=== PATIENT | male | born 1955 | race Caucasian/White ===

== ENCOUNTER 2019-11-01 12:25 | Day surgery (SDC) | payer MEDICARE ==
[~2019-11-01] VITALS: Ht 180.3 cm; Wt 142.9 kg
[~2019-11-01 12:25] MED LIST: 8 HOUR PAIN RE650 MG PO; AZO BLADDER CO300 MG PO; CARVEDILOL12.5 MG PO; FEBUXOSTAT80 MG PO; FLAXSEED OIL1000 M1 PO; FLOMAX0.4 MG PO; FUROSEMIDE40 MG PO; GABAPENTIN600 MG PO; INSULIN LI100 UNIT/1 SUB-Q; ISOSORBIDE MONO30 MG PO; LEVOTHYROXINE75 MCG PO; LISINOPRIL40 MG PO; METFORMIN HCL500 M2 PO; PANTOPRAZOLE SO40 MG PO; POTASSIUM99 M1 PO; TRAVOPROST2.5 ML OP; TRAZODONE HCL50 MG PO; VITAMIN B COMP1 EAC1 PO; VITAMIN C500 M1 PO; XARELTO20 MG PO
--- NOTE | 2019-11-01 15:54 | NUR ---
11/01/19 1554 Steffi Gtz 1550 PATIENT ARRIVES TO PACU AWAKE BUT DROWSY. ABLE TO HOLD CONVERSATION WITH STAFF APPROPRIATELY. RESP EVEN AND UNLABORED,ROOM AIR SATS >93%.
--- NOTE | 2019-11-05 08:25 | OR ---
[facility] [address], [place] [address] Signed DATE OF OPERATION: 11/01/2019 SURGEON: Teresa Palmer MD PREOPERATIVE DIAGNOSES: 1. Gastroesophageal reflux and distal dysphagia occasionally. 2. Upper GI demonstrating "75% narrowing distal esophagus.". POSTOPERATIVE DIAGNOSES: 1. No evidence of distal esophageal stricture. 2. Complex hiatal hernia and angulation deformity of esophagus. PROCEDURE: Esophagogastroduodenoscopy with biopsy. ANESTHESIA: Intravenous sedation, fentanyl rather propofol infusion; Linda Clemente CRNA. INDICATION: This 64-year-old morbidly obese white man, 315 pounds, is a patient of Dr. Louann Canales. He has had complaints of gastroesophageal reflux. It is improved by Protonix. He also has some distal dysphagia. He underwent an upper GI in [facility] and referred by Dr. Muniz on July 25, 2019, showing moderate hiatal hernia, massive reflux 75% narrowed in the distal esophagus without a malignant appearance. This was a short-segment. He has other medical comorbidities including history of coronary artery bypass grafting, diabetes, and a litany of other problems, all related to morbid obesity. He is admitted at this time to undergo upper endoscopy and possible dilation. He understands the risks of bleeding, infection, and perforation. FINDINGS: Esophagus had no stricture. There was definitely a hiatal hernia and complex in appearance overall. Stomach and duodenum were essentially normal. CLOtest was -15 minutes post procedure. As there was no specific stricture, dilation was not undertaken. Biopsies were obtained of the distal esophagus and mid esophagus to assess for eosinophilic esophagitis. DESCRIPTION OF PROCEDURE: The patient was brought to the endoscopy suite and placed in lateral decubitus position given intravenous sedation with propofol infusional technique by the airport electrician. Full cardiopulmonary monitoring was maintained. A bite block was placed. An Olympus video Electronically Signed By: TERESA PALMER MD 11/05/19 0825 PATIENT NAME: SILVANA ENGLISH OPERATIVE REPORT DATE OF : 51 REPORT #: [id number] PHYSICIAN: TERESA PALMER MD PCP: LOUANN CANALES MD REPORT IS CONFIDENTIAL AND NOT TO BE RELEASED WITHOUT AUTHORIZATION [facility] [address], [place] [address] Signed upper endoscope was passed into the hypopharynx. The vocal cords appeared reasonably normal. Scope was advanced to the esophagus. Throughout its length, it showed no sign of stricture but did show angulation deformity in the distal portion. There was no sign of Ansari's epithelium or varices. The scope was advanced to the stomach, which was insufflated with air. There was no sign of ulceration or other abnormality. Rugal folds were normal. Pylorus was normal scope was passed through into the duodenum, which was normal. Biopsies were taken the duodenum to assess for celiac disease. The scope was withdrawn and biopsies then taken of the antrum for both EDWIN and pathologic testing. Retroflexed view showed a rather large hiatal hernia and complex anatomy but not likely a paraesophageal hernia proper. The scope was withdrawn to the distal esophagus were completely normal. Mucosa was noted. Biopsies were obtained. The scope was withdrawn and angulation deformity in the distal third of the esophagus was noted. Biopsies were taken in the midesophagus to assess for eosinophilic esophagitis. The scope was withdrawn. The vocal cords were once again examined, and the scope was then removed. The patient was taken to the recovery room in good condition. CONCLUDING DIAGNOSES: There is no sign of distal esophageal stricture and therefore dilation not undertaken. Angulation of the esophagus may be related to his hiatal hernia and is unlikely a problem that is remediable by any means at this point. The most important approach for his management is weight loss. We have discussed it before. PLAN: He will continue his Protonix. He will return to the ongoing care of Dr. Canales. I am happy to see him again in 6-8 weeks to review his pathology reports more fully. MD MARGA Sanders/RASTAL /[id number] cc: Louann Canales MD Electronically Signed By: TERESA PALMER MD 11/05/19 0825 PATIENT NAME: SILVANA ENGLISH OPERATIVE REPORT DATE OF : 51 REPORT #: [id number] PHYSICIAN: TERESA PALMER MD PCP: LOUANN CANALES MD REPORT IS CONFIDENTIAL AND NOT TO BE RELEASED WITHOUT AUTHORIZATION [facility] [address] [place] [id number] Signed Copies: LOUANN CANALES MD ~ Electronically Signed By: TERESA PALMER MD 11/05/19 0825 PATIENT NAME: SILVANA ENGLISH OPERATIVE REPORT DATE OF : 51 REPORT #: [id number] PHYSICIAN: TERESA PALMER MD PCP: LOUANN CANALES MD REPORT IS CONFIDENTIAL AND NOT TO BE RELEASED WITHOUT AUTHORIZATION
--- NOTE | 2019-11-05 16:36 | PATH ---
[facility] [address] [place], [place] [address] Signed SPECIMEN(S): A DUODENUM SPECIMEN(S): B ANTRUM/PYLORUS SPECIMEN(S): C LOWER ESOPHAGUS SPECIMEN(S): D MIDDLE ESOPHAGUS SPECIMEN SOURCE: A. DUODENUM B. ANTRUM/PYLORUS C. LOWER ESOPHAGUS D. MIDDLE ESOPHAGUS CLINICAL HISTORY: Dysphagia, reflux. MICROSCOPIC DESCRIPTION: Histologic sections of all submitted blocks are examined by light microscopy. These findings, together with the gross examination, support the pathologic diagnosis. FINAL PATHOLOGIC DIAGNOSIS: A. Duodenum, biopsy: - Benign duodenal mucosa, negative for specific diagnostic abnormality. B. Antrum/pylorus, biopsy: - Gastric type mucosa with focal slight chronic inflammation. - Negative for evidence of Helicobacter organisms on routine HE stained sections. C. Lower esophagus, biopsy: - Squamocolumnar junction with reactive epithelia features and slight chronic inflammation. - Negative for specialized intestinal metaplasia or dysplasia. D. Middle esophagus, biopsy: - Benign esophageal mucosa, negative for increased epithelial eosinophils. JVR:cml:[id number] GROSS DESCRIPTION: Four specimens are received in four containers, labeled "DW." A. The specimen, labeled "DW," and designated on the requisition "duodenum biopsy," is received in formalin and consists of one fragment of pink-lopez tissue (0.4 x 0.4 x 0.3 cm). The specimen is submitted entirely in cassette (A1). B. The specimen, labeled "DW," and designated on the requisition "antrum/pylorus biopsy," is received in formalin and consists of two fragments PATIENT NAME: SILVANA ENGLISH PATHOLOGY DATE OF : 51 REPORT #: [id number] PHYSICIAN: [facility] PATHOLOGY PCP: LOUANN SON MD REPORT IS CONFIDENTIAL AND NOT TO BE RELEASED WITHOUT AUTHORIZATION [facility] [address] [place], [place] [address] Signed of pink-lopez tissue (0.4 x 0.2 x 0.2 cm in aggregate). The specimen is submitted entirely in cassette (B1). C. The specimen, labeled "DW," and designated on the requisition "lower esophagus biopsy," is received in formalin and consists of multiple fragments of white-lopez tissue (0.5 x 0.4 x 0.2 cm in aggregate). The specimen is submitted entirely in cassette (C1). D. The specimen, labeled "DW," and designated on the requisition "middle esophagus biopsy," is received in formalin and consists of multiple fragments of lopez tissue (0.5 x 0.3 x 0.2 cm in aggregate). The specimen is submitted entirely in cassette (D1). AC (under the direct supervision of a pathologist) The Gross Description was prepared using a voice recognition system. The report was reviewed for accuracy; however, sound-alike word errors, addition and/or deletions may occur. If there is any question about this report, please contact Client Services. PERFORMING LABORATORY: The technical component was performed by [facility], [address] [place] [id number] (Shelver: Sushma Hale MD; CLIA# [id number]). Professional interpretation was performed by [facility] [address] (Shelver: Samuel Godinez M.D.). Diagnostician: Samuel Godinez MD Pathologist Electronically Signed 11/05/2019 Copies: ~ PATIENT NAME: SILVANA ENGLISH PATHOLOGY DATE OF : 51 REPORT #: [id number] PHYSICIAN: [facility] PATHOLOGY PCP: LOUANN SON MD REPORT IS CONFIDENTIAL AND NOT TO BE RELEASED WITHOUT AUTHORIZATION
== END 2019-11-01 16:15 | disposition home or self-care (01) ==
LOC: OPS 12:25 → DS 12:25 → OPS 13:00
PROVIDERS: Surgery
PROC: 0DB78ZX Excision of Stomach, Pylorus, Via Natural or Artificial Opening Endoscopic, Diagnostic (ICD-10-PCS; 2019-11-01)
PROC: 0DB28ZX Excision of Middle Esophagus, Via Natural or Artificial Opening Endoscopic, Diagnostic (ICD-10-PCS; 2019-11-01)
PROC: 0DB38ZX Excision of Lower Esophagus, Via Natural or Artificial Opening Endoscopic, Diagnostic (ICD-10-PCS; 2019-11-01)
PROC: 0DB98ZX Excision of Duodenum, Via Natural or Artificial Opening Endoscopic, Diagnostic (ICD-10-PCS; principal; 2019-11-01 13:30)
DX: K29.50 Unspecified chronic gastritis without bleeding (principal); K21.0 Gastro-esophageal reflux disease with esophagitis; K44.9 Diaphragmatic hernia without obstruction or gangrene; I11.0 Hypertensive heart disease with heart failure; I50.9 Heart failure, unspecified; E11.9 Type 2 diabetes mellitus without complications; I25.2 Old myocardial infarction; J45.909 Unspecified asthma, uncomplicated; D64.9 Anemia, unspecified; E03.9 Hypothyroidism, unspecified; G47.30 Sleep apnea, unspecified; E66.01 Morbid (severe) obesity due to excess calories; Z88.8 Allergy status to other drugs, medicaments and biological substances; Z79.899 Other long term (current) drug therapy; Z79.4 Long term (current) use of insulin; Z68.43 Body mass index [BMI] 50.0-59.9, adult
CPT/HCPCS: J2001; J2704